=== PATIENT | female | born 2000 ===

== ENCOUNTER 2022-05-19 17:37 | Emergency (ER) | payer SELFPAY ==
[2022-05-19] MEDS ORDERED: KETOROLAC 30 MG/1 ML INJ IM ONE (21:25)
--- NOTE | 2022-05-19 22:01 | Emergency Department Report ---
ED Back Pain/Injury HPI - General Chief Complaint: Back Pain/Injury Stated Complaint: BACK PAIN Time Seen by Provider: 05/19/22 21:20 Source: patient Limitations: No Limitations - History of Present Illness Initial Comments: Patient presents with pain in the left rhomboid area for the last 3 days. Onset was after lifting some boxes. Denies any other trauma no prior similar sy mptoms. DRUMMOND Complaint: back pain -: Gradual, days(s) (3) Similar Symptoms Previously: No Place: home Radiation: none Severity scale (0 -10): 6 Quality: dull, aching Consistency: intermittent Improves With: none Worsens With: movement, other (Palpation) Context: while lifting Associated Symptoms: denies other symptoms. denies: numbness, cough, incontinence, fever/chills, shortness of breath Treatments Prior to Arrival: other (None) - Related Data Previous Rx's Medication Instructions Recorded Last Taken Type Cyclobenzaprine HCl 10 mg PO HS PRN #20 tab 05/19/22 Unknown Rx Naproxen Sodium [Naproxen Sodium 375 mg PO BID #20 tab 05/19/22 Unknown Rx Cr 375mg] Allergies Allergy/AdvReac Type Severity Reaction Status Date / Time No Known Allergies Allergy Unverified 05/19/22 18:42 ED Review of Systems ROS: Stated complaint: BACK PAIN Other details as noted in HPI Comment: All other systems reviewed and negative Constitutional: denies: chills, fever Eyes: denies: vision change ENT: denies: throat pain Respiratory: denies: cough, shortness of breath Cardiovascular: denies: chest pain, palpitations, dyspnea on exertion, edema Gastrointestinal: denies: abdominal pain, nausea, vomiting, diarrhea Genitourinary: denies: urgency, dysuria, frequency, hematuria Musculoskeletal: as per HPI Skin: denies: rash, change in color Neurological: denies: headache, numbness, paresthesias, confusion Psychiatric: denies: anxiety, depression ED Past Medical Hx - Past Medical History Previous Medical History?: No - Surgical History Past Surgical History?: No - Family History Family history: no significant - Social History Smoking Status: Never Smoker Substance Use Type: None - Medications Home Medications: Home Medications Medication Instructions Recorded Confirmed Last Taken Type Cyclobenzaprine HCl 10 mg PO HS PRN #20 tab 05/19/22 Unknown Rx Naproxen Sodium [Naproxen Sodium 375 mg PO BID #20 tab 05/19/22 Unknown Rx Cr 375mg] ED Physical Exam - General Limitations: No Limitations General appearance: alert, in no apparent distress - Head Head exam: Present: atraumatic, normocephalic - Eye Eye exam: Present: normal appearance, PERRL, EOMI, scleral icterus, conjunctival injection - ENT ENT exam: Present: mucous membranes moist - Neck Neck exam: Present: normal inspection, full ROM. Absent: tenderness, meningismu s, lymphadenopathy - Respiratory Respiratory exam: Present: normal lung sounds bilaterally. Absent: respiratory distress, wheezes, rales, rhonchi, stridor - Cardiovascular Cardiovascular Exam: Present: regular rate, normal rhythm, normal heart sounds - GI/Abdominal GI/Abdominal exam: Present: soft. Absent: tenderness - Extremities Exam Extremities exam: Present: normal inspection, full ROM, normal capillary refill. Absent: tenderness, joint swelling - Back Exam Back exam: Present: normal inspection, full ROM, tenderness (Left rhomboid area). Absent: CVA tenderness (R), CVA tenderness (L) - Neurological Exam Neurological exam: Present: alert, oriented X3, normal gait - Psychiatric Psychiatric exam: Present: normal affect, normal mood - Skin Skin exam: Present: warm, dry, intact, normal color ED Course Vital Signs 05/19/22 05/19/22 18:40 22:52 Temperature 98.2 F Pulse Rate 70 76 Respiratory 18 12 Rate Blood Pressure 113/82 123/87 [Left] O2 Sat by Pulse 100 98 Oximetry - Reevaluation(s) Reevaluation #1: 05/20/22 06:07 Discharge vital signs reviewed and are normal ED Medical Decision Making - Medical Decision Making No blunt trauma or injury so no x-rays. Patient had improvement with Toradol. We will send out on anti-inflammatories muscle relaxers with follow-up with primary care if not improving in 3 to 5 days. Critical care attestation.: If time is entered above; I have spent that time in minutes in the direct care of this critically ill patient, excluding procedure time. ED Disposition Clinical Impression: Strain of thoracic back region Disposition: HOME / SELF CARE / HOMELESS Is pt being admited?: No Condition: Stable Instructions: How to Use Cold Therapy, Thoracic Strain Rehab-SportsMed Additional Instructions: Ice all areas alternating with heat 15-minute intervals. Anti-inflammatory and muscle relaxer prescriptions. Follow-up with primary care or as referred if not improving in 3 to 5 days. Return if any worsening of symptoms. Prescriptions: Cyclobenzaprine HCl 10 mg PO HS PRN #20 tab PRN Reason: Spasms Naproxen Sodium [Naproxen Sodium Cr 375mg] 375 mg PO BID #20 tab Referrals: THANIA GRACIA MD [Staff Physician] - 3-5 Days Forms: Work/School Release Form(ED) Time of Disposition: 22:07
[2022-05-19 22:52] VITALS: BP 123/87
== END 2022-05-19 22:52 | disposition home or self-care (01) ==
LOC: ED 17:37
DX: S29.012A Strain of muscle and tendon of back wall of thorax, initial encounter (principal); X58.XXXA Exposure to other specified factors, initial encounter; Y93.89 Activity, other specified; Y92.89 Other specified places as the place of occurrence of the external cause; Y99.8 Other external cause status
CPT/HCPCS: 96372; 99282; J1885

== ENCOUNTER 2022-06-13 16:18 | Emergency (ER) | payer SELFPAY ==
[2022-06-13 17:17] VITALS: BP 118/72
== END 2022-06-13 21:30 | disposition left against medical advice (07) ==
LOC: ED 16:18
DX: M54.2 Cervicalgia (principal); M54.9 Dorsalgia, unspecified; R20.0 Anesthesia of skin; Z53.21 Procedure and treatment not carried out due to patient leaving prior to being seen by health care provider